=== PATIENT | male | born 2000 | race Caucasian/White ===

== ENCOUNTER 2021-10-19 21:58 | Emergency (ER) | payer BC ==
[2021-10-19] MEDS ORDERED: Midazolam 1 MG/ML 2 ML SDV IVPUSH ONE (22:48)
[2021-10-19] MEDS ORDERED: Lidocaine 1% 10 ML MDV INJECT ONE (22:48)
[2021-10-19] MEDS ORDERED: fentaNYL 100 MCG/2 ML SDV IVPUSH ONE (22:48)
[2021-10-19] MEDS: fentaNYL 100 MCG/2 ML SDV IVPUSH ONE ×2 (23:40→23:45)
== END 2021-10-20 00:30 | disposition home or self-care (01) ==
LOC: JD.ED 21:58
DX: S63.054A Dislocation of other carpometacarpal joint of right hand, initial encounter (principal); Z88.0 Allergy status to penicillin; W22.09XA Striking against other stationary object, initial encounter
CPT/HCPCS: 26670; 73120; 73130; 99283; J2250; J3010

== ENCOUNTER 2022-05-22 02:48 | Emergency (ER) | payer BC ==
[2022-05-22] MEDS ORDERED: Sodium Chloride 0.9% 10 ML Syringe FLUSH PRN (03:36)
[2022-05-22] MEDS ORDERED: HYDROmorphone 1 MG/ML Syringe IVPUSH ONE (03:36)
[2022-05-22] MEDS ORDERED: Lidocaine 1% 10 ML MDV INJECT ONE (03:36)
== END 2022-05-22 04:20 | disposition home or self-care (01) ==
LOC: JD.ED 02:48
DX: S62.316A Displaced fracture of base of fifth metacarpal bone, right hand, initial encounter for closed fracture (principal); Z88.0 Allergy status to penicillin; W22.8XXA Striking against or struck by other objects, initial encounter
CPT/HCPCS: 26605; 73130; 96374; 99283; J1170; J3490

== ENCOUNTER 2025-03-31 19:42 | Emergency (ER) | payer BC | END 2025-03-31 23:37 | disposition home or self-care (01) | LOC: JD.ED 19:42 | DX: S02.19XA Other fracture of base of skull, initial encounter for closed fracture (principal); F10.120 Alcohol abuse with intoxication, uncomplicated; Z88.0 Allergy status to penicillin; Z79.899 Other long term (current) drug therapy; Y90.9 Presence of alcohol in blood, level not specified; X58.XXXA Exposure to other specified factors, initial encounter; Y93.89 Activity, other specified | CPT/HCPCS: 36415; 70450; 72125; 80307; 99284; A9270 ==

== ENCOUNTER 2025-04-01 08:31 | Emergency (ER) | payer BC ==
[2025-04-01 09:35] LABS: BASOPHILS ABSOLUTE AUTO 0.0 K/mm3 (0.0-0.2); BASOPHILS PERCENT AUTO 0.4 % (0.0-1.0); EOSINOPHILS ABSOLUTE AUTO 0.0 K/mm3 (0.0-0.4); EOSINOPHILS PERCENT AUTO 0.3 % (0.0-6.0); IMMATURE GRAN ABSOLUTE AUTO 0.05 K/mm3 (0.00-0.05); IMMATURE GRAN PERCENT AUTO 0.5 % (0.0-0.4); LYMPHOCYTES ABSOLUTE AUTO 1.8 K/mm3 (1.0-4.8); LYMPHOCYTES PERCENT AUTO 16.1 % (24.0-44.0); MEAN PLATELET VOLUME 9.0 fl (9.4-12.4); MONOCYTES ABSOLUTE AUTO 1.1 K/mm3 (0.0-0.8); MONOCYTES PERCENT AUTO 10.4 % (0.0-8.0); NEUTROPHILS ABSOLUTE AUTO 7.9 K/mm3 (1.8-7.7); NEUTROPHILS PERCENT AUTO 72.3 % (41.0-71.0); NRBC ABSOLUTE 0.00 (0.00-0.02); NRBC PERCENT 0.0 % (0.0-0.2); PLATELET COUNT,PLT 387 K/mm3 (150-400); RED BLOOD CELL COUNT 5.21 M/mm3 (4.52-5.90); WHITE BLOOD CELL COUNT,WBC 10.95 K/mm3 (3.9-11.3)
[2025-04-01 09:47] LABS: INR 1.11
[2025-04-01 09:48] LABS: PTT,PARTIAL THROMBOPLSTIN TIME 26.6 SECONDS (21.7-31.4)
[2025-04-01 09:50] LABS: A/G RATIO 1.1 (1-2); ALANINE AMINOTRANSFERASE,ALT 31.0 U/L (16-63); ASPARTATE AMNIOTRANSFERASE,AST 24.0 U/L (15-37); BILIRUBIN TOTAL 2.6 mg/dL (0.2-1.0); BLOOD UREA NITROGEN,BUN 9.0 mg/dL (7-18); CARBON DIOXIDE,CO2 30.0 mEq/L (21-32); CHLORIDE,CL 104.0 mEq/L (98-107); CREATININE 1.0 mg/dL (0.7-1.3); EST CRCL DRUG DOSING (CG) 137.31 mL/min; ESTIMATED GFR 108.0 mL/min (>60); ETHANOL BLOOD MEDICAL 0.0 gm% (0.00); GLUCOSE RANDOM 117.0 mg/dL (70-99); POTASSIUM,K 3.8 mEq/L (3.5-5.1); PROTEIN TOTAL,TP 7.4 g/dl (6.4-8.2); SODIUM,NA 143.0 mEq/L (136-145)
[2025-04-01] MEDS: Ondansetron 4 MG/2 ML SDV IVPUSH ONE (09:56)
[2025-04-01] MEDS: Sodium Chloride 0.9% 10 ML Syringe FLUSH PRN ×2 (10:20→10:37)
[2025-04-01] MEDS: Iopamidol 612 MG/ML 100 ML Bottle IVPUSH ONE (10:21)
== END 2025-04-01 11:45 | disposition home or self-care (01) ==
LOC: JD.ED 08:31
DX: K29.21 Alcoholic gastritis with bleeding (principal); F17.210 Nicotine dependence, cigarettes, uncomplicated; Z88.0 Allergy status to penicillin; Z79.899 Other long term (current) drug therapy; Z86.16 Personal history of COVID-19
CPT/HCPCS: 36415; 74177; 80053; 80307; 83735; 85025; 85610; 85730; 96361; 96374; 96375; 99285; J1308; J2405; J2470; J7030; Q9967; 99284